=== PATIENT | female | born 1975 | race Caucasian/White ===

== ENCOUNTER → 2016-06-17 | Outpatient (REF) | payer OTHER | LOC: CANPREREF → M SFHCPLAZ 14:28 | PROVIDERS: ATTEND Internal Medicine | DX: Z00.00 Encounter for general adult medical examination without abnormal findings (principal); Z83.49 Family history of other endocrine, nutritional and metabolic diseases; E78.5 Hyperlipidemia, unspecified; Z53.9 Procedure and treatment not carried out, unspecified reason ==

== ENCOUNTER → 2016-07-18 | Outpatient (REF) | payer BC ==
[2016-07-18 12:19] LABS: ALBUMIN 3.8 GM/DL (3.2-5.2); ALBUMIN/GLOBULIN RATIO 1.27 (1.00-1.93); ALKALINE PHOSPHATASE 46 U/L (45-117); ALT/SGPT 19 U/L (12-78); ANION GAP 10 MEQ/L (8-16); AST/SGOT 17 U/L (15-37); BILIRUBIN,TOTAL 0.6 MG/DL (0.2-1.0); BLOOD UREA NITROGEN 16 MG/DL (7-18); CALCIUM LEVEL 9.1 MG/DL (8.5-10.1); CARBON DIOXIDE LEVEL 27 MEQ/L (21-32); CHLORIDE LEVEL 104 MEQ/L (98-107); CHOLESTEROL LEVEL 233 MG/DL (<200); CREATININE FOR GFR 0.78 MG/DL (0.55-1.02); GLOMERULAR FILTRATION RATE > 60.0 (>58); GLUCOSE, FASTING 87 MG/DL (70-105); POTASSIUM SERUM 4.1 MEQ/L (3.5-5.1); SODIUM LEVEL 141 MEQ/L (136-145); TOTAL PROTEIN 6.8 GM/DL (6.4-8.2); TRIGLYCERIDES LEVEL 226 MG/DL (<150)
[2016-07-18 12:44] LABS: MEAN CORPUSCULAR HEMOGLOBIN 29.8 pg (27.0-33.0); MEAN CORPUSCULAR VOLUME 87.6 fl (80.0-96.0); RED CELL DISTRIBUTION WIDTH 12.2 % (11.5-14.5); WHITE BLOOD COUNT 5.9 K/mm3 (4.0-10.0)
== END ==
LOC: M LABDRAW1 11:38
PROVIDERS: ATTEND Internal Medicine
DX: Z00.00 Encounter for general adult medical examination without abnormal findings (principal); Z83.49 Family history of other endocrine, nutritional and metabolic diseases; E78.5 Hyperlipidemia, unspecified

== ENCOUNTER → 2017-01-21 | Outpatient (CLI) | payer BC ==
[2017-01-21 14:23] LABS: ALBUMIN 3.9 GM/DL (3.2-5.2); ALBUMIN/GLOBULIN RATIO 1.15 (1.00-1.93); ALKALINE PHOSPHATASE 52 U/L (45-117); ALT/SGPT 19 U/L (12-78); ANION GAP 10 MEQ/L (8-16); AST/SGOT 14 U/L (15-37); BASO # 0.1 K/mm3 (0.0-0.2); BASO % 1.2 % (0.0-1.0); BILIRUBIN,TOTAL 0.5 MG/DL (0.2-1.0); BLOOD UREA NITROGEN 13 MG/DL (7-18); CARBON DIOXIDE LEVEL 25 MEQ/L (21-32); CHLORIDE LEVEL 107 MEQ/L (98-107); CREATININE FOR GFR 0.79 MG/DL (0.55-1.02); EOS # 0.1 K/mm3 (0.0-0.50); EOS % 2.3 % (0.0-3.0); GLOMERULAR FILTRATION RATE > 60.0 (>58); GLUCOSE, FASTING 89 MG/DL (70-105); LARGE UNSTAINED CELL # 0.1 K/mm3 (0.0-0.4); LARGE UNSTAINED CELL % 1.9 % (0.0-4.0); LYMPH # 1.6 K/mm3 (1.5-4.5); LYMPH % 28.7 % (24.0-44.0); MEAN CORPUSCULAR HEMOGLOBIN 29.6 pg (27.0-33.0); MEAN CORPUSCULAR HGB CONC 33.1 g/dl (32.0-36.5); MEAN CORPUSCULAR VOLUME 89.5 fl (80.0-96.0); MONO # 0.3 K/mm3 (0.0-0.8); NEUTROPHILS # 3.2 K/mm3 (1.8-7.7); NEUTROPHILS % 60.9 % (36.0-66.0); PLATELET COUNT, AUTOMATED 185 k/mm3 (150-450); POTASSIUM SERUM 4.6 MEQ/L (3.5-5.1); RED CELL DISTRIBUTION WIDTH 11.9 % (11.5-14.5); SODIUM LEVEL 142 MEQ/L (136-145); TOTAL PROTEIN 7.3 GM/DL (6.4-8.2); WHITE BLOOD COUNT 5.2 K/mm3 (4.0-10.0)
[2017-01-21 15:11] LABS: MICROSCOPIC INDICATED? MAN NO (NO)
== END ==
LOC: M WUC 08:54
PROVIDERS: ATTEND Physician Assistant
DX: R59.0 Localized enlarged lymph nodes (principal)

== ENCOUNTER → 2017-05-05 | Outpatient (REF) | payer BC ==
[2017-05-06 13:43] LABS: CALCIUM OXALATE CRYSTALS SMALL
== END ==
LOC: M LAB REF 13:00
PROVIDERS: ATTEND Nurse Practitioner Women's Health
DX: N76.1 Subacute and chronic vaginitis (principal); N39.0 Urinary tract infection, site not specified

== ENCOUNTER → 2017-06-24 | Outpatient (REF) | payer BC ==
[2017-06-24 11:01] LABS: HEMATOCRIT 39.8 % (36.0-47.0); HEMOGLOBIN 13.3 g/dl (12.0-16.0); MEAN CORPUSCULAR HEMOGLOBIN 29.2 pg (27.0-33.0); MEAN CORPUSCULAR HGB CONC 33.4 g/dl (32.0-36.5); MEAN CORPUSCULAR VOLUME 87.3 fl (80.0-96.0); PLATELET COUNT, AUTOMATED 218 10^3/uL (150-450); RED BLOOD COUNT 4.56 10^6/uL (4.00-5.40); RED CELL DISTRIBUTION WIDTH 11.9 % (11.5-14.5); WHITE BLOOD COUNT 4.3 10^3/uL (4.0-10.0)
[2017-06-24 11:18] LABS: ALBUMIN 4.1 GM/DL (3.2-5.2); ALBUMIN/GLOBULIN RATIO 1.24 (1.00-1.93); ALKALINE PHOSPHATASE 49 U/L (45-117); ALT/SGPT 24 U/L (12-78); ANION GAP 7 MEQ/L (8-16); AST/SGOT 24 U/L (7-37); BILIRUBIN,TOTAL 0.7 MG/DL (0.2-1.0); BLOOD UREA NITROGEN 15 MG/DL (7-18); CALCIUM LEVEL 9.2 MG/DL (8.5-10.1); CARBON DIOXIDE LEVEL 26 MEQ/L (21-32); CHLORIDE LEVEL 106 MEQ/L (98-107); CHOLESTEROL LEVEL 279 MG/DL (<200); CHOLESTEROL RISK RATIO 3.065 (<5); CREATININE FOR GFR 0.84 MG/DL (0.55-1.02); GLOMERULAR FILTRATION RATE > 60.0 (>58); GLUCOSE, FASTING 92 MG/DL (70-100); HDL CHOLESTEROL 91 MG/DL (>40); NON-HDL-C 188 MG/DL; POTASSIUM SERUM 4.1 MEQ/L (3.5-5.1); SODIUM LEVEL 139 MEQ/L (136-145); TOTAL PROTEIN 7.4 GM/DL (6.4-8.2); TRIGLYCERIDES LEVEL 160 MG/DL (<150)
[2017-06-24 12:21] LABS: TOTAL 25(OH) VITAMIN D 32.4 NG/ML (30.0-100.0)
== END ==
LOC: M LABDRAW1 10:40
DX: J30.9 Allergic rhinitis, unspecified (principal); E78.5 Hyperlipidemia, unspecified; E55.9 Vitamin D deficiency, unspecified
CPT/HCPCS: 80053

== ENCOUNTER → 2018-05-11 | Outpatient (CLI) | payer BC, SELFPAY ==
[~2018-05-11] MED LIST: ISOVUE-370 76% 100ML VIAL (Q9967) As Ordered
== END ==
LOC: M RAD 16:19
DX: R22.1 Localized swelling, mass and lump, neck (principal)
CPT/HCPCS: Q9967

== ENCOUNTER → 2018-11-03 | Outpatient (REF) | payer BC ==
[2018-11-03 09:55] LABS: HEMATOCRIT 38.7 % (36.0-47.0); HEMOGLOBIN 12.7 g/dl (12.0-15.5); MEAN CORPUSCULAR HEMOGLOBIN 29.1 pg (27.0-33.0); MEAN CORPUSCULAR HGB CONC 32.8 g/dl (32.0-36.5); MEAN CORPUSCULAR VOLUME 88.8 fl (80.0-96.0); PLATELET COUNT, AUTOMATED 226 10^3/uL (150-450); RED BLOOD COUNT 4.36 10^6/uL (4.00-5.40); WHITE BLOOD COUNT 5.6 10^3/uL (4.0-10.0)
[2018-11-03 10:33] LABS: ALBUMIN 3.8 GM/DL (3.2-5.2); ALT/SGPT 33 U/L (12-78); BILIRUBIN,TOTAL 0.5 MG/DL (0.2-1.0); BLOOD UREA NITROGEN 14 MG/DL (7-18); CALCIUM LEVEL 9.3 MG/DL (8.5-10.1); CARBON DIOXIDE LEVEL 28 MEQ/L (21-32); CHLORIDE LEVEL 106 MEQ/L (98-107); CHOLESTEROL LEVEL 267 MG/DL (<200); CHOLESTEROL RISK RATIO 3.216 (<5); CREATININE FOR GFR 0.75 MG/DL (0.55-1.30); GLOMERULAR FILTRATION RATE > 60.0 (>58); GLUCOSE, FASTING 86 MG/DL (70-100); HDL CHOLESTEROL 83 MG/DL (>40); LDL CHOLESTEROL 152 MG/DL (<100); NON-HDL-C 184 MG/DL; POTASSIUM SERUM 4.3 MEQ/L (3.5-5.1); SODIUM LEVEL 141 MEQ/L (136-145); TOTAL PROTEIN 6.9 GM/DL (6.4-8.2); TRIGLYCERIDES LEVEL 160 MG/DL (<150)
== END ==
LOC: M SFHCPLAZ 08:22
PROVIDERS: ATTEND Internal Medicine
DX: Z00.00 Encounter for general adult medical examination without abnormal findings (principal); E78.5 Hyperlipidemia, unspecified

== ENCOUNTER → 2019-11-14 | Outpatient (REF) | payer BC ==
[2019-11-14 11:14] LABS: HEMATOCRIT 41.2 % (36.0-47.0); HEMOGLOBIN 13.5 g/dl (12.0-15.5); MEAN CORPUSCULAR HGB CONC 32.8 g/dl (32.0-36.5); MEAN CORPUSCULAR VOLUME 88.6 fl (80.0-96.0); PLATELET COUNT, AUTOMATED 214 10^3/uL (150-450); RED BLOOD COUNT 4.65 10^6/uL (4.00-5.40); WHITE BLOOD COUNT 6.2 10^3/uL (4.0-10.0)
[2019-11-14 11:43] LABS: ALBUMIN 3.9 GM/DL (3.2-5.2); ALT/SGPT 37 U/L (12-78); BILIRUBIN,TOTAL 0.7 MG/DL (0.2-1.0); BLOOD UREA NITROGEN 11 MG/DL (7-18); CALCIUM LEVEL 9.3 MG/DL (8.5-10.1); CARBON DIOXIDE LEVEL 24 MEQ/L (21-32); CHLORIDE LEVEL 106 MEQ/L (98-107); CHOLESTEROL LEVEL 246 MG/DL (<200); CHOLESTEROL RISK RATIO 3.236 (<5); CREATININE FOR GFR 0.78 MG/DL (0.55-1.30); GLOMERULAR FILTRATION RATE > 60.0 (>58); GLUCOSE, FASTING 91 MG/DL (70-100); HDL CHOLESTEROL 76 MG/DL (>40); LDL CHOLESTEROL 130 MG/DL (<100); NON-HDL-C 170 MG/DL; POTASSIUM SERUM 4.3 MEQ/L (3.5-5.1); SODIUM LEVEL 138 MEQ/L (136-145); TOTAL PROTEIN 7.3 GM/DL (6.4-8.2); TRIGLYCERIDES LEVEL 201 MG/DL (<150)
[2019-11-14 11:57] LABS: TOTAL 25(OH) VITAMIN D 30.1 NG/ML (30.0-100.0)
== END ==
LOC: M SFHCPLAZ 09:39
PROVIDERS: ATTEND Internal Medicine
DX: J30.9 Allergic rhinitis, unspecified (principal); E78.5 Hyperlipidemia, unspecified; R25.2 Cramp and spasm; E55.9 Vitamin D deficiency, unspecified

== ENCOUNTER → 2020-10-31 | Outpatient (REF) | payer BC ==
[2020-10-31 13:35] LABS: HEMATOCRIT 40.5 % (36.0-47.0); HEMOGLOBIN 13.1 g/dl (12.0-15.5); MEAN CORPUSCULAR HEMOGLOBIN 29.6 pg (27.0-33.0); MEAN CORPUSCULAR HGB CONC 32.3 g/dl (32.0-36.5); MEAN CORPUSCULAR VOLUME 91.6 fl (80.0-96.0); PLATELET COUNT, AUTOMATED 198 10^3/uL (150-450); RED BLOOD COUNT 4.42 10^6/uL (4.00-5.40); WHITE BLOOD COUNT 5.1 10^3/uL (4.0-10.0)
[2020-10-31 14:22] LABS: ALBUMIN 3.8 GM/DL (3.2-5.2); ALT/SGPT 28 U/L (12-78); BILIRUBIN,TOTAL 0.9 MG/DL (0.2-1.0); BLOOD UREA NITROGEN 13 MG/DL (7-18); CALCIUM LEVEL 9.5 MG/DL (8.5-10.1); CARBON DIOXIDE LEVEL 27 MEQ/L (21-32); CHLORIDE LEVEL 106 MEQ/L (98-107); CHOLESTEROL LEVEL 249 MG/DL (<200); CHOLESTEROL RISK RATIO 3.036 (<5); GLOMERULAR FILTRATION RATE > 60.0 (>58); GLUCOSE, FASTING 89 MG/DL (70-100); HDL CHOLESTEROL 82 MG/DL (>40); LDL CHOLESTEROL 130 MG/DL (<100); NON-HDL-C 167 MG/DL; SODIUM LEVEL 139 MEQ/L (136-145); TOTAL PROTEIN 6.9 GM/DL (6.4-8.2); TRIGLYCERIDES LEVEL 187 MG/DL (<150)
== END ==
LOC: M PLALAB 09:46
PROVIDERS: ATTEND Internal Medicine
DX: Z00.00 Encounter for general adult medical examination without abnormal findings (principal); J30.9 Allergic rhinitis, unspecified; E78.5 Hyperlipidemia, unspecified

== ENCOUNTER → 2021-11-06 | Outpatient (CLI) | payer BC ==
[2021-11-06 13:41] LABS: BASO # 0.1 10^3/uL (0.0-0.2); BASO % 1.8 % (0.0-1.0); EOS # 0.2 10^3/uL (0.0-0.5); HEMATOCRIT 39.8 % (36.0-47.0); HEMOGLOBIN 12.7 g/dl (12.0-15.5); LYMPH # 1.8 10^3/uL (1.5-5.0); LYMPH % 34.8 % (24.0-44.0); MEAN CORPUSCULAR HEMOGLOBIN 28.9 pg (27.0-33.0); MEAN CORPUSCULAR HGB CONC 31.9 g/dl (32.0-36.5); MEAN CORPUSCULAR VOLUME 90.7 fl (80.0-96.0); MONO # 0.4 10^3/uL (0.0-0.8); MONO % 7.4 % (2.0-8.0); NEUTROPHILS # 2.7 10^3/uL (1.5-8.5); NEUTROPHILS % 52.8 % (36.0-66.0); PLATELET COUNT, AUTOMATED 221 10^3/uL (150-450); RED BLOOD COUNT 4.39 10^6/uL (4.00-5.40)
[2021-11-06 14:34] LABS: ALBUMIN 3.5 GM/DL (3.2-5.2); ALT/SGPT 21 U/L (12-78); BILIRUBIN,TOTAL 0.9 MG/DL (0.2-1.0); BLOOD UREA NITROGEN 11 MG/DL (7-18); CARBON DIOXIDE LEVEL 26 MEQ/L (21-32); CHLORIDE LEVEL 109 MEQ/L (98-107); CHOLESTEROL LEVEL 220 MG/DL (<200); CHOLESTEROL RISK RATIO 2.784 (<5); CREATININE FOR GFR 0.79 MG/DL (0.55-1.30); GLOMERULAR FILTRATION RATE > 60.0 (>58); GLUCOSE, FASTING 90 MG/DL (70-100); HDL CHOLESTEROL 79 MG/DL (>40); LDL CHOLESTEROL 107 MG/DL (<100); NON-HDL-C 141 MG/DL; POTASSIUM SERUM 4.7 MEQ/L (3.5-5.1); SODIUM LEVEL 140 MEQ/L (136-145); TOTAL PROTEIN 6.7 GM/DL (6.4-8.2); TRIGLYCERIDES LEVEL 172 MG/DL (<150)
== END ==
LOC: M PLALAB 09:37
PROVIDERS: ATTEND Internal Medicine
DX: Z00.00 Encounter for general adult medical examination without abnormal findings (principal); E78.5 Hyperlipidemia, unspecified; J30.9 Allergic rhinitis, unspecified

== ENCOUNTER → 2022-05-27 | Outpatient (CLI) | payer BC ==
[~2022-05-27] MED LIST changes: -ISOVUE-370 76% 100ML VIAL (Q9967) As Ordered; +METH4PACK PO
[2022-05-27 12:49] LABS: BASO # 0.1 10^3/uL (0.0-0.2); BASO % 1.3 % (0.0-1.0); EOS # 0.2 10^3/uL (0.0-0.5); EOS % 3.1 % (0.0-3.0); HEMATOCRIT 38.9 % (36.0-47.0); HEMOGLOBIN 12.9 g/dl (12.0-15.5); LYMPH # 1.4 10^3/uL (1.5-5.0); MEAN CORPUSCULAR HEMOGLOBIN 29.5 pg (27.0-33.0); MEAN CORPUSCULAR HGB CONC 33.2 g/dl (32.0-36.5); MONO # 0.4 10^3/uL (0.0-0.8); MONO % 8.1 % (2.0-8.0); NEUTROPHILS # 2.8 10^3/uL (1.5-8.5); NEUTROPHILS % 58.3 % (36.0-66.0); PLATELET COUNT, AUTOMATED 206 10^3/uL (150-450); RED BLOOD COUNT 4.37 10^6/uL (4.00-5.40); WHITE BLOOD COUNT 4.8 10^3/uL (4.0-10.0)
[2022-05-27 13:02] LABS: ERYTHROCYTE SEDIMENTATION RATE 9 mm/hr (0-20)
[2022-05-27 13:15] LABS: ALBUMIN 3.8 G/DL (3.2-5.2); ALKALINE PHOSPHATASE 62 U/L (46-116); ALT/SGPT 25 U/L (7.0-40); AST/SGOT 27 U/L (<34); BILIRUBIN,TOTAL 0.9 MG/DL (0.3-1.2); BLOOD UREA NITROGEN 11 MG/DL (9-23); CALCIUM LEVEL 9.3 MG/DL (8.5-10.1); CARBON DIOXIDE LEVEL 25 MMOL/L (20-31); CHLORIDE LEVEL 106 MMOL/L (98-107); CREATININE FOR GFR 0.64 MG/DL (0.55-1.30); GLOMERULAR FILTRATION RATE > 60.0 (>58); GLUCOSE, FASTING 93 MG/DL (60-100); POTASSIUM SERUM 4.1 MMOL/L (3.5-5.1); SODIUM LEVEL 139 MMOL/L (136-145); TOTAL PROTEIN 6.5 G/DL (5.7-8.2); TOTAL PROTEIN 6.5 GM/DL (6.4-8.2)
[2022-05-27 13:16] LABS: C REACTIVE PROTEIN QUANTITATIV < 0.40 MG/DL (<1.0)
[2022-05-27 13:18] LABS: COMPLEMENT C3 110.3 MG/DL (90.0-170.0); COMPLEMENT C4 22.3 MG/DL (12-36); FREE T4 0.96 NG/DL (0.89-1.76); IMMUNOGLOBULIN A 197.2 MG/DL (40-350); IMMUNOGLOBULIN G 694 MG/DL (650-1600); IMMUNOGLOBULIN M 101.5 MG/DL (50-300); RHEUMATOID FACTOR QUANT < 3.5 IU/ML (<14)
[2022-05-27 13:19] LABS: THYROID STIMULATING HORMONE 2.169 uIU/ML (0.55-4.78)
[2022-05-27 13:20] LABS: THYROID PEROXIDASE ANTIBODY 32 U/ML (<60.0)
== END ==
LOC: M LAB 12:06
PROVIDERS: ATTEND Physician Assistant
DX: L50.8 Other urticaria (principal)

== ENCOUNTER → 2022-06-13 | Outpatient (CLI) | payer BC ==
[2022-06-13 16:59] LABS: CREATININE,RANDOM URINE 64.1 MG/DL; TOTAL PROTEIN,RANDOM URINE < 6.0 MG/DL (0.0-14.0)
[2022-06-13 17:05] LABS: COMPLEMENT C3 122.5 MG/DL (90.0-170.0)
[2022-06-13 17:07] LABS: COMPLEMENT C4 24.5 MG/DL (12-36)
[2022-06-13 18:33] LABS: APPEARANCE, URINE MANUAL CLEAR (CLEAR); COLOR, URINE MANUAL YELLOW (YELLOW); GLUCOSE, URINE (UA) MANUAL NEGATIVE (NEGATIVE); PROTEIN, URINE MANUAL NEGATIVE (NEGATIVE); SPECIFIC GRAVITY,URINE MANUAL 1.015 (1.002-1.035)
[2022-06-13 18:34] LABS: BILIRUBIN, URINE MANUAL NEGATIVE (NEGATIVE); BLOOD URINE MANUAL POSITIVE (NEGATIVE); KETONE, URINE MANUAL NEGATIVE (NEGATIVE); LEUKOCYTE ESTERASE, URINE MAN NEGATIVE (NEGATIVE); NITRITE, URINE MANUAL NEGATIVE (NEGATIVE); UROBILINOGEN, URINE MANUAL NORMAL (NORMAL)
[2022-06-13 18:50] LABS: BACTERIA, URINE SMALL AMOUNT; RBC, URINE 0-1 /hpf (0-3); SQUAMOUS EPITHELIAL CELL URINE SMALL AMOUNT /hpf (SMALL AMT); WBC, URINE 0-1 /hpf (0-3)
[2022-06-13 18:51] LABS: HYALINE CAST, URINE NONE SEEN /lpf (0-1)
== END ==
LOC: M WUC 11:07
PROVIDERS: ATTEND Dermatology
DX: R76.8 Other specified abnormal immunological findings in serum (principal)

== ENCOUNTER → 2022-10-10 | Outpatient (CLI) | payer BC | LOC: M RAD 10:59 | PROVIDERS: ATTEND Internal Medicine | DX: M25.551 Pain in right hip (principal); I87.8 Other specified disorders of veins ==

== ENCOUNTER → 2022-10-28 | Outpatient (REF) | payer BC | LOC: M SFHCWAGY 08:30 | PROVIDERS: ATTEND Nurse Practitioner Family | DX: Z12.4 Encounter for screening for malignant neoplasm of cervix (principal) ==

== ENCOUNTER → 2022-11-10 | Outpatient (CLI) | payer BC ==
[2022-11-10 14:35] LABS: HEMOGLOBIN 13.2 g/dl (12.0-15.5); MEAN CORPUSCULAR HEMOGLOBIN 29.7 pg (27.0-33.0); MEAN CORPUSCULAR HGB CONC 32.2 g/dl (32.0-36.5); MEAN CORPUSCULAR VOLUME 92.3 fl (80.0-96.0); PLATELET COUNT, AUTOMATED 209 10^3/uL (150-450); RED BLOOD COUNT 4.44 10^6/uL (4.00-5.40); WHITE BLOOD COUNT 4.4 10^3/uL (4.0-10.0)
[2022-11-10 15:00] LABS: ALBUMIN 4.3 G/DL (3.2-5.2); ALKALINE PHOSPHATASE 62 U/L (46-116); ALT/SGPT 34 U/L (7.0-40); AST/SGOT 24 U/L (<34); BILIRUBIN,TOTAL 1.1 MG/DL (0.3-1.2); BLOOD UREA NITROGEN 16 MG/DL (9-23); CALCIUM LEVEL 9.4 MG/DL (8.5-10.1); CARBON DIOXIDE LEVEL 27 MMOL/L (20-31); CHLORIDE LEVEL 105 MMOL/L (98-107); CHOLESTEROL LEVEL 243 MG/DL (<200); CREATININE FOR GFR 0.74 MG/DL (0.55-1.30); FERRITIN 86.9 NG/ML (7.3-270.7); FREE T4 1.01 NG/DL (0.89-1.76); GLOMERULAR FILTRATION RATE > 60.0 (>58); GLUCOSE, FASTING 92 MG/DL (60-100); HDL CHOLESTEROL 96.9 MG/DL (>40); LDL CHOLESTEROL 130.7 MG/DL (<100); NON-HDL-C 146.1 MG/DL; POTASSIUM SERUM 4.7 MMOL/L (3.5-5.1); SODIUM LEVEL 140 MMOL/L (136-145); THYROID STIMULATING HORMONE 1.409 uIU/ML (0.55-4.78); TOTAL IRON BINDING CAPACITY 329 UG/DL (250-425); TOTAL PROTEIN 6.9 G/DL (5.7-8.2); TRIGLYCERIDES LEVEL 77 MG/DL (<150)
[2022-11-10 15:01] LABS: IRON (FE) 79 UG/DL (50-170)
[2022-11-10 15:02] LABS: TOTAL 25(OH) VITAMIN D 20.9 NG/ML (20.0-100.0); VITAMIN B12 LEVEL 379 PG/ML (211-911)
[2022-11-10 15:06] LABS: CREATININE, URINE 285.8 MG/DL; MAU/CREAT RATIO 8.7 MCG/MG (0.0-30.0)
[2022-11-10 18:19] LABS: C REACTIVE PROTEIN QUANTITATIV < 0.40 MG/DL (<1.0)
== END ==
LOC: M PLALAB 11:26
PROVIDERS: ATTEND Internal Medicine Hematology
DX: Z00.00 Encounter for general adult medical examination without abnormal findings (principal); E78.5 Hyperlipidemia, unspecified

== ENCOUNTER 2023-06-29 11:05 | Day surgery (SDC) | payer BC ==
[~2023-06-29] VITALS: Ht 172.7 cm; Wt 75.7 kg
[2023-06-29] MEDS ORDERED: LR 1,000 ML IV SCH ×2 (11:35→14:35)
[2023-06-29] MEDS ORDERED: fentaNYL 100 MCG/2 ML INJECTION As Ordered ONE (11:55)
[2023-06-29] MEDS ORDERED: MIDAZOLAM INJ 2MG/2ML VIAL As Ordered ONE (11:55)
[2023-06-29] MEDS ORDERED: ONDANSETRON 4MG 2ML VIAL As Ordered ONE ×2 (11:55→13:18)
[2023-06-29] MEDS ORDERED: ROCURONIUM BROMIDE 50MG/5ML VIAL As Ordered ONE ×2 (11:55→12:38)
[2023-06-29] MEDS ORDERED: propofoL 200 MG/20 ML VIAL As Ordered ONE ×2 (11:55→12:48)
[2023-06-29] MEDS ORDERED: LIDOCAINE 2% INJ 100 MG/5 ML SYRINGE As Ordered ONE ×3 (11:55→13:17)
[2023-06-29] MEDS ORDERED: SUGAMMADEX SODIUM 500 MG/5 ML VIAL (BRIDION) As Ordered ONE (11:55)
[2023-06-29] MEDS ORDERED: ACETAMINOPHEN 1000MG 100ML IV BAG As Ordered ONE (12:44)
[2023-06-29] MEDS ORDERED: LIDOCAINE 2% 100MG/5ML SDV (FOR ANES.) As Ordered ONE (13:17)
[2023-06-29] MEDS: LIDOCAINE W/EPINEPHRINE 1% 20ML VIAL As Ordered ONE ×2 (14:14→14:20)
[2023-06-29] MEDS ORDERED: MEPERIDINE 25 MG/ML 1ML VIAL IV PRN (14:35)
[2023-06-29] MEDS ORDERED: fentaNYL 100 MCG/2 ML INJECTION IV PRN (14:35)
[2023-06-29] MEDS ORDERED: ONDANSETRON 4MG 2ML VIAL IV PRN (14:35)
[2023-06-29] MEDS ORDERED: MORPHINE 2 MG/ML 1ML VIAL IV PRN (14:35)
[2023-06-29] MEDS ORDERED: oxyCODONE 5MG TAB PO PRN (14:35)
[2023-06-29] MEDS ORDERED: diphenhydrAMINE 50MG/ML VIAL IV PRN (14:35)
[2023-06-29] MEDS ORDERED: METOCLOPRAMIDE INJ 10MG/2ML VIAL IV PRN (14:35)
[2023-06-29 16:30] VITALS: BP 141/69; TEMP 98.1; O2SAT 100
== END 2023-06-29 16:53 | disposition home or self-care (01) ==
LOC: M SDC 11:05
PROVIDERS: ATTEND Otolaryngology
DX: J35.8 Other chronic diseases of tonsils and adenoids (principal); R13.10 Dysphagia, unspecified; Z91.018 Allergy to other foods; Z88.2 Allergy status to sulfonamides; Z91.010 Allergy to peanuts
CPT/HCPCS: 42808; 81025; 88305; J0131; J1100; J2250; J2405; J3010

== ENCOUNTER → 2023-07-29 | Outpatient (CLI) | payer BC | LOC: M WHC 09:10 | PROVIDERS: ATTEND Nurse Practitioner Family | DX: Z12.31 Encounter for screening mammogram for malignant neoplasm of breast (principal); R92.323 Mammographic fibroglandular density, bilateral breasts; R92.8 Other abnormal and inconclusive findings on diagnostic imaging of breast ==

== ENCOUNTER → 2023-08-19 | Outpatient (CLI) | payer BC | LOC: M WHC 08:29 | PROVIDERS: ATTEND Nurse Practitioner Family | DX: R92.8 Other abnormal and inconclusive findings on diagnostic imaging of breast (principal); R92.321 Mammographic fibroglandular density, right breast ==

== ENCOUNTER → 2023-09-18 | Day surgery (SDC) | payer BC ==
[~2023-09-18] VITALS: Ht 172.7 cm; Wt 78.9 kg
[~2023-09-18] MED LIST changes: +ACETAMINOPHEN 1000MG 100ML IV BAG As Ordered ONE; +ENSK1TAB3 PO; +HYDROMORPHONE HCL 0.5 MG/ 0.5 ML SYRINGE IV PRN; +LIDOCAINE 2% 100MG/5ML SDV (FOR ANES.) As Ordered ONE; +LR 1,000 ML IV SCH; +MIDAZOLAM INJ 2MG/2ML VIAL As Ordered ONE; +ONDANSETRON 4MG 2ML VIAL As Ordered ONE; +ONDANSETRON 4MG 2ML VIAL IV PRN; +PHENYLephrine 500MCG 5ML (100MCG/ML) SYRINGE As Ordered ONE; +ROCURONIUM BROMIDE 50MG/5ML VIAL As Ordered ONE; +SUGAMMADEX SODIUM 500 MG/5 ML VIAL (BRIDION) As Ordered ONE; +dexmedeTOMIDine (4MCG/ML)200MCG/50ML BTL (PRECEDEX) As Ordered ONE; +ePHEDrine SULFATE 25 MG/5 ML(5MG/ML) SYRINGE As Ordered ONE; +fentaNYL 100 MCG/2 ML INJECTION As Ordered ONE; +fentaNYL 100 MCG/2 ML INJECTION IV PRN; +oxyCODONE 5MG TAB PO PRN; +propofoL 200 MG/20 ML VIAL As Ordered ONE
[2023-09-18] MEDS: SCOPOLAMINE 1MG TRANSDERMAL PATCH As Ordered ONE (08:57)
[2023-09-18 11:15] VITALS: BP 141/86; TEMP 97.1; O2SAT 98
== END | disposition home or self-care (01) ==
LOC: M SDC 07:33
PROVIDERS: ATTEND Otolaryngology
DX: J35.01 Chronic tonsillitis (principal); J35.8 Other chronic diseases of tonsils and adenoids; Z90.49 Acquired absence of other specified parts of digestive tract; Z79.3 Long term (current) use of hormonal contraceptives; Z91.018 Allergy to other foods; Z88.2 Allergy status to sulfonamides
CPT/HCPCS: 42826; 81025; 88302; J0131; J1100; J2250; J2371; J2405; J3010

== ENCOUNTER → 2023-11-18 | Outpatient (CLI) | payer BC ==
[~2023-11-18] MED LIST changes: -ACETAMINOPHEN 1000MG 100ML IV BAG As Ordered ONE; -HYDROMORPHONE HCL 0.5 MG/ 0.5 ML SYRINGE IV PRN; -LIDOCAINE 2% 100MG/5ML SDV (FOR ANES.) As Ordered ONE; -LR 1,000 ML IV SCH; -MIDAZOLAM INJ 2MG/2ML VIAL As Ordered ONE; -ONDANSETRON 4MG 2ML VIAL As Ordered ONE; -ONDANSETRON 4MG 2ML VIAL IV PRN; -PHENYLephrine 500MCG 5ML (100MCG/ML) SYRINGE As Ordered ONE; -ROCURONIUM BROMIDE 50MG/5ML VIAL As Ordered ONE; -SUGAMMADEX SODIUM 500 MG/5 ML VIAL (BRIDION) As Ordered ONE; -dexmedeTOMIDine (4MCG/ML)200MCG/50ML BTL (PRECEDEX) As Ordered ONE; -ePHEDrine SULFATE 25 MG/5 ML(5MG/ML) SYRINGE As Ordered ONE; -fentaNYL 100 MCG/2 ML INJECTION As Ordered ONE; -fentaNYL 100 MCG/2 ML INJECTION IV PRN; -oxyCODONE 5MG TAB PO PRN; -propofoL 200 MG/20 ML VIAL As Ordered ONE
[2023-11-18 11:01] LABS: BASO # 0.1 10^3/uL (0.0-0.2); BASO % 1.7 % (0.0-1.0); EOS # 0.3 10^3/uL (0.0-0.5); HEMATOCRIT 39.5 % (36.0-47.0); HEMOGLOBIN 12.7 g/dl (12.0-15.5); LYMPH # 1.6 10^3/uL (1.5-5.0); LYMPH % 37.5 % (24.0-44.0); MEAN CORPUSCULAR HEMOGLOBIN 29.1 pg (27.0-33.0); MEAN CORPUSCULAR HGB CONC 32.2 g/dl (32.0-36.5); MEAN CORPUSCULAR VOLUME 90.6 fl (80.0-96.0); MONO # 0.4 10^3/uL (0.0-0.8); MONO % 9.5 % (2.0-8.0); NEUTROPHILS # 1.9 10^3/uL (1.5-8.5); NEUTROPHILS % 45.3 % (36.0-66.0); PLATELET COUNT, AUTOMATED 205 10^3/uL (150-450); RED BLOOD COUNT 4.36 10^6/uL (4.00-5.40); WHITE BLOOD COUNT 4.2 10^3/uL (4.0-10.0)
[2023-11-18 11:13] LABS: ALBUMIN 3.6 G/DL (3.2-5.2); ALKALINE PHOSPHATASE 50 U/L (46-116); ALT/SGPT 22 U/L (7.0-40); AST/SGOT 25 U/L (<34); BILIRUBIN,TOTAL 0.8 MG/DL (0.3-1.2); BLOOD UREA NITROGEN 10 MG/DL (9-23); CALCIUM LEVEL 9.6 MG/DL (8.5-10.1); CARBON DIOXIDE LEVEL 27 MMOL/L (20-31); CHLORIDE LEVEL 106 MMOL/L (98-107); CHOLESTEROL LEVEL 263 MG/DL (<200); CHOLESTEROL RISK RATIO 2.73 (<5); CREATININE FOR GFR 0.76 MG/DL (0.55-1.30); FERRITIN 120.3 NG/ML (7.3-270.7); FREE T4 1.15 NG/DL (0.89-1.76); GLOMERULAR FILTRATION RATE > 60.0 (>58); GLUCOSE, FASTING 91 MG/DL (60-100); HDL CHOLESTEROL 96.1 MG/DL (>40); LDL CHOLESTEROL 138.7 MG/DL (<100); NON-HDL-C 166.9 MG/DL; POTASSIUM SERUM 4.3 MMOL/L (3.5-5.1); SODIUM LEVEL 138 MMOL/L (136-145); THYROID STIMULATING HORMONE 2.728 uIU/ML (0.55-4.78); TOTAL PROTEIN 6.6 G/DL (5.7-8.2); TRIGLYCERIDES LEVEL 141 MG/DL (<150)
== END ==
LOC: M PLALAB 08:12
PROVIDERS: ATTEND Internal Medicine Hematology
DX: E78.5 Hyperlipidemia, unspecified (principal); R25.2 Cramp and spasm

== ENCOUNTER → 2023-11-25 | Outpatient (REF) | payer BC ==
[2023-11-27 12:52] LABS: HPV APTIMA Not Detected (Not Detected)
== END ==
LOC: M SFHCWAGY 12:44
PROVIDERS: ATTEND Nurse Practitioner Family
DX: Z12.4 Encounter for screening for malignant neoplasm of cervix (principal)

== ENCOUNTER → 2023-12-28 | Outpatient (REF) | payer BC ==
[2023-12-29 15:02] LABS: ANA SCREEN, IFA POSITIVE (NEGATIVE)
== END ==
LOC: M SFHCRHEU 11:00
PROVIDERS: ATTEND Internal Medicine
DX: R53.83 Other fatigue (principal); R76.8 Other specified abnormal immunological findings in serum

== ENCOUNTER → 2024-06-27 | Outpatient (CLI) | payer BC | LOC: M SOG 10:29 | PROVIDERS: ATTEND Physician Assistant | DX: M25.561 Pain in right knee (principal); M17.11 Unilateral primary osteoarthritis, right knee; M25.461 Effusion, right knee ==

== ENCOUNTER 2024-12-08 07:30 | Day surgery (SDC) | payer BC ==
[~2024-12-08] VITALS: Ht 172.7 cm; Wt 75.8 kg
[~2024-12-08 07:30] MED LIST changes: +VALA500T5 PO
[2024-12-08] MEDS ORDERED: LIDOCAINE 2% 100 MG/5 ML SDV (FOR ANES.) As Ordered ONE (08:05)
[2024-12-08] MEDS ORDERED: diphenhydrAMINE 50 MG/ML VIAL As Ordered ONE (08:33)
[2024-12-08] MEDS: diphenhydrAMINE 50 MG/ML VIAL IV STA (09:20)
[2024-12-08] MEDS: CETIRIZINE 10 MG TAB PO STA (09:24)
[2024-12-08] MEDS ORDERED: EPINEPHrine INJ 1 MG/ML 1ML AMP As Ordered ONE (10:01)
[2024-12-08 10:19] VITALS: BP 140/90; TEMP 97.6; O2SAT 100
== END 2024-12-08 10:30 | disposition home or self-care (01) ==
LOC: M OPP 07:30
PROVIDERS: ATTEND Surgery
DX: Z12.11 Encounter for screening for malignant neoplasm of colon (principal); K57.30 Diverticulosis of large intestine without perforation or abscess without bleeding; Z88.2 Allergy status to sulfonamides; Z91.018 Allergy to other foods
CPT/HCPCS: 45378; J0166; J1200

== ENCOUNTER 2024-12-16 21:57 | Emergency (ER) | payer BC ==
[2024-12-16 23:01] LABS: BASO # 0.1 10^3/uL (0.0-0.2); BASO % 0.9 % (0.0-1.0); EOS # 0.1 10^3/uL (0.0-0.5); EOS % 2.2 % (0.0-3.0); LYMPH # 2.0 10^3/uL (1.5-5.0); LYMPH % 36.9 % (24.0-44.0); MONO # 0.5 10^3/uL (0.0-0.8); MONO % 8.5 % (2.0-8.0); NEUTROPHILS # 2.8 10^3/uL (1.5-8.5); NEUTROPHILS % 51.3 % (36.0-66.0); PLATELET COUNT, AUTOMATED 210 10^3/uL (150-450)
[2024-12-16] MEDS: ALBUTEROL SULFATE 2.5 MG/0.5 ML INH CONCENTRATE NEB SOLN NEB STA (23:09)
[2024-12-16] MEDS: EPINEPHrine INJ 1 MG/ML 1ML AMP IM STA (23:10)
[2024-12-16] MEDS: FAMOTIDINE 20 MG/2 ML VIAL IVP ONE (23:10)
[2024-12-16] MEDS: NS (Normal Saline) 0.9% 1,000 ML IV ONE (23:10)
[2024-12-16 23:11] LABS: ERYTHROCYTE SEDIMENTATION RATE 3 mm/hr (0-20)
[2024-12-16 23:16] LABS: ALT/SGPT 59 U/L (7.0-40); AST/SGOT 56 U/L (<34); C REACTIVE PROTEIN QUANTITATIV < 0.50 MG/DL (<1.0); CALCIUM LEVEL 9.5 MG/DL (8.5-10.1); CARBON DIOXIDE LEVEL 23 MMOL/L (20-31); CHLORIDE LEVEL 107 MMOL/L (98-107); CREATININE FOR GFR 0.77 MG/DL (0.55-1.30); GLOMERULAR FILTRATION RATE > 90.0 (>58); POTASSIUM SERUM 3.4 MMOL/L (3.5-5.1); SODIUM LEVEL 146 MMOL/L (136-145)
[2024-12-17] MEDS ORDERED: MEDR4PAK PO (01:36)
[2024-12-17] MEDS ORDERED: EPIP0.3I2 IJ (01:40)
[2024-12-17] MEDS ORDERED: ZYRTTAB8 PO (01:40)
[2024-12-17] MEDS ORDERED: FLON1SPR NARES (01:41)
[2024-12-17] MEDS ORDERED: BENA25CA4 PO (01:49)
[2024-12-17] MEDS ORDERED: ALLE60TA69 PO (01:49)
[2024-12-17 02:00] VITALS: BP 125/63; O2SAT 98
== END 2024-12-17 02:05 | disposition home or self-care (01) ==
LOC: M ED 21:57
DX: T78.8XXA Other adverse effects, not elsewhere classified, initial encounter (principal); Z79.899 Other long term (current) drug therapy; Z88.2 Allergy status to sulfonamides; Z91.018 Allergy to other foods
CPT/HCPCS: 71045; 80048; 80076; 85025; 85652; 86140; 93005; 93041; 94640; 94760; 96361; 96374; 96375; 99285; J0166; J1308; J2919

== ENCOUNTER → 2025-02-15 | Outpatient (REF) | payer BC ==
[~2025-02-15] MED LIST changes: +ALLE60TA69 PO; +BENA25CA4 PO; +EPIP0.3I2 IJ; +FLON1SPR NARES; +MEDR4PAK PO; +ZYRTTAB8 PO
== END ==
LOC: M SFHCWAGY 15:39
PROVIDERS: ATTEND Specialist
DX: Z12.4 Encounter for screening for malignant neoplasm of cervix (principal)

== ENCOUNTER 2025-03-23 21:03 | Emergency (ER) | payer BC ==
[~2025-03-23] VITALS: Ht 172.7 cm; Wt 72.0 kg
[2025-03-23] MEDS ORDERED: EPIP0.3I2 IM (21:47)
[2025-03-23] MEDS ORDERED: PEPC1TAB5 PO (22:10)
[2025-03-23] MEDS ORDERED: ALLE180T33 PO (22:11)
[2025-03-23] MEDS ORDERED: PRED20TA PO (22:12)
[2025-03-23] MEDS ORDERED: diphenhydrAMINE 50 MG/ML VIAL IM STA (22:19)
[2025-03-23] MEDS: FAMOTIDINE 20 MG/2 ML VIAL IVP ONE (22:27)
[2025-03-23] MEDS: diphenhydrAMINE 50 MG/ML VIAL IV STA (22:27)
[2025-03-24] MEDS ORDERED: DIPH50CA31 PO (00:02)
[2025-03-24 00:33] VITALS: O2SAT 97
[2025-03-24 00:59] VITALS: BP 115/78; TEMP 97.7
== END 2025-03-24 01:20 | disposition home or self-care (01) ==
LOC: M ED 21:03
DX: T78.40XA Allergy, unspecified, initial encounter (principal); Z79.899 Other long term (current) drug therapy; Z88.2 Allergy status to sulfonamides; Z91.018 Allergy to other foods
CPT/HCPCS: 93041; 94760; 96374; 96375; 99285; J1200; J1308; J2919

== ENCOUNTER 2025-04-18 01:52 | Emergency (ER) | payer BC ==
[~2025-04-18] VITALS: Ht 172.7 cm; Wt 71.2 kg
[~2025-04-18 01:52] MED LIST changes: +ALLE180T33 PO; +DIPH50CA31 PO; +EPIP0.3I2 IM; +PEPC1TAB5 PO; +PRED20TA PO
[2025-04-18 01:55] VITALS: BP 167/86; TEMP 96.1; O2SAT 99
[2025-04-18 02:20] LABS: KETONE, URINE AUTO RFX NEGATIVE (NEGATIVE); LEUKOCYTE ESTERASE UR AUTO RFX 3+ (NEGATIVE); NITRITE, URINE AUTO RFX NEGATIVE (NEGATIVE); RBC, URINE AUTO RFX 10 /HPF (0-3); SQUAM EPITHELIAL CELL UR AURFX 1 /HPF (0-6); WBC, URINE AUTO RFX TNTC /HPF (0-3)
== END 2025-04-18 03:56 | disposition left against medical advice (07) ==
LOC: M ED 01:52
DX: Z53.21 Procedure and treatment not carried out due to patient leaving prior to being seen by health care provider (principal)

== ENCOUNTER → 2025-04-21 | Outpatient (CLI) | payer BC ==
[2025-04-21 17:43] LABS: BASO # 0.1 10^3/uL (0.0-0.2); BASO % 1.0 % (0.0-1.0); EOS # 0.0 10^3/uL (0.0-0.5); EOS % 0.6 % (0.0-3.0); LYMPH # 1.0 10^3/uL (1.5-5.0); LYMPH % 16.2 % (24.0-44.0); MONO # 0.5 10^3/uL (0.0-0.8); MONO % 7.1 % (2.0-8.0); NEUTROPHILS # 4.7 10^3/uL (1.5-8.5); NEUTROPHILS % 74.8 % (36.0-66.0); PLATELET COUNT, AUTOMATED 246 10^3/uL (150-450)
[2025-04-21 21:29] LABS: ALT/SGPT 22 U/L (7.0-40); AST/SGOT 18 U/L (<34); CALCIUM LEVEL 9.4 MG/DL (8.5-10.1); CARBON DIOXIDE LEVEL 26 MMOL/L (20-31); CHLORIDE LEVEL 105 MMOL/L (98-107); CREATININE FOR GFR 0.66 MG/DL (0.55-1.30); GLOMERULAR FILTRATION RATE > 90.0 (>51); POTASSIUM SERUM 4.2 MMOL/L (3.5-5.1); SODIUM LEVEL 140 MMOL/L (136-145)
[2025-04-21 21:31] LABS: THYROXINE (T4) 7.6 UG/DL (4.5-10.9)
[2025-04-21 21:44] LABS: THYROID PEROXIDASE ANTIBODY < 28.0 U/ML (<60.0); TOTAL T3 99.0 NG/DL (60.0-181.0)
[2025-04-21 22:02] LABS: COMPLEMENT C4 26.2 MG/DL (12-36); RHEUMATOID FACTOR QUANT 5.9 IU/ML (<14)
[2025-04-24 17:58] LABS: THRYOGLOBULIN ANTIBODIES (ATA) < 1 IU/mL (< or = 1); THYROGLOBULIN QUANTITATIVE 7.9 ng/mL (2.8-40.9)
== END ==
LOC: M WUC 11:15
PROVIDERS: ATTEND Allergy & Immunology Allergy
DX: T78.2XXA Anaphylactic shock, unspecified, initial encounter (principal); L50.1 Idiopathic urticaria

== ENCOUNTER → 2025-04-26 | Outpatient (REF) | payer BC ==
[2025-04-26 17:34] LABS: APPEARANCE, URINE HAZY (CLEAR); BACTERIA, URINE AUTO 1+ (NEGATIVE); BILIRUBIN, URINE AUTO NEGATIVE (NEGATIVE); BLOOD, URINE BLOOD NEGATIVE (NEGATIVE); GLUCOSE, URINE (UA) AUTO NEGATIVE (NEGATIVE); KETONE, URINE AUTO NEGATIVE (NEGATIVE); LEUKOCYTE ESTERASE, URINE AUTO 2+ (NEGATIVE); NITRITE, URINE AUTO NEGATIVE (NEGATIVE); PROTEIN, URINE AUTO NEGATIVE (NEGATIVE); RBC, URINE AUTO 1 /HPF (0-3); SPECIFIC GRAVITY URINE AUTO 1.004 (1.002-1.035); SQUAMOUS EPITHELIAL CELL UR AU 10 /HPF (0-6); UROBILINOGEN, URINE AUTO 0.2 mg/dL (0.0-2.0); WBC, URINE AUTO 35 /HPF (0-3)
== END ==
LOC: M LAB REF 16:39
PROVIDERS: ATTEND Physician Assistant Medical
DX: N39.0 Urinary tract infection, site not specified (principal)